=== PATIENT | male | born 1955 | race Caucasian/White ===

== ENCOUNTER 2016-09-19 22:22 | Emergency (ER) | payer OTHER ==
[~2016-09-19 22:22] MED LIST: ATARAX HCL25 MG PO; BACLOFEN10 M1 PO; CEPHALEXIN500 M1 PO; CLINDAMYCIN; DICLOXACILLIN250 M1 PO; HYDROCHLOROTHIA25 MG PO; KLOR-CON 88 ME1 PO; LASIX20 MG PO; LEVOTHYROXINE0.1 M1 PO; LOTENSIN5 MG PO; METOPROLOL100 M1 PO; OMEPRAZOLE20 M1 PO; PRILOSEC40 MG PO; RANITIDINE75 MG PO; REGLAN5 MG PO; RIBASPHERE RIB PO; SOVALDI400 MG PO; SPIRONOLACTONE100 MG PO; ZANTAC150 MG PO; ZESTRIL10 MG PO; ZYLOPRIM100 MG PO; [UNRECOGNIZED DRUG - REMARK]
--- NOTE | 2016-09-19 22:46 | NUR ---
CALLED PT 3X, CHECK OUTSIDE. PT IS NOT AT THE WAITING AREA NOR OUTSIDE. WILL CHECK BACK AGAIN.
--- NOTE | 2016-09-19 23:30 | NUR ---
CALLED 3X AGAIN EVEN CHECK OUTSIDE AGAIN. PT NOT SEEN. PATIENT LEFT WITHOUT BEING SEEN BY DR. MENDEZ. NO FURTHER CARE PROVIDED FOR PATIENT.
== END 2016-09-19 23:30 | disposition left against medical advice (07) ==
LOC: MED 22:22
DX: R10.9 Unspecified abdominal pain (principal); Z53.21 Procedure and treatment not carried out due to patient leaving prior to being seen by health care provider

== ENCOUNTER 2016-11-26 16:03 | Inpatient (IN) | payer OTHER ==
[~2016-11-26] VITALS: Ht 180.3 cm; Wt 104.3 kg
[2016-11-26 16:07] VITALS: BP 139/88
[2016-11-26] MEDS ORDERED: LIPITOR20 MG PO (16:12)
[2016-11-26] MEDS ORDERED: RANITIDINE HCL150 M2 PO (16:12)
[2016-11-26] MEDS ORDERED: LISINOPRIL40 M1 PO (16:12)
[2016-11-26] MEDS ORDERED: NORVASC10 MG PO (16:12)
[2016-11-26] MEDS ORDERED: NAPROXEN500 M2 PO (16:12)
[2016-11-26] MEDS ORDERED: [UNRECOGNIZED DRUG - OTHER] PO (16:12)
--- NOTE | 2016-11-26 16:18 | NUR ---
Patient ambulated to bed 06.
--- NOTE | 2016-11-26 16:23 | NUR ---
Dr. Webster evaluating patient at bedside.
[2016-11-26] MEDS ORDERED: ASPIRIN 325 MG TAB PO ONE (16:25)
--- NOTE | 2016-11-26 16:25 | NUR ---
PT. PRESENTS TO ED C/O RIGHT SIDED CP X 2 DAYS, STATES NO COUGH OR COLD, NO VISIBLE SIGNS OF DISTRESS NOTED, BREATHING EVEN AND UNLABORED, AAOX4, AMBULATORY, GAIT STEADY
[2016-11-26] MEDS ORDERED: NITROGLYCERIN 0.4 MG TAB SL ONE (16:35)
--- NOTE | 2016-11-26 16:51 | NUR ---
PT. TOLERATED MEDS WITHOUT PROBLEM, RADIOLOGY AT BEDSIDE
[2016-11-26] MEDS ORDERED: HYDROcodone/APAP 5/325 MG 1 TAB TAB PO PRN (17:20)
[2016-11-26] MEDS ORDERED: MORPHINE SULFATE 2 MG/ML SYR IVP PRN (17:20)
[2016-11-26] MEDS ORDERED: LORazepam 1 MG TAB PO PRN (17:20)
[2016-11-26] MEDS ORDERED: ZOLPIDEM 5 MG TAB PO PRN (17:20)
[2016-11-26] MEDS ORDERED: ONDANSETRON 4 MG/2 ML VIAL IVP PRN (17:20)
[2016-11-26] MEDS ORDERED: ACETAMINOPHEN 325 MG TAB PO PRN (17:20)
[2016-11-26 17:30] VITALS: BP 146/89
[2016-11-26] MEDS ORDERED: METOPROLOL 25 MG TAB PO SCH ×2 (17:30→18:00)
[2016-11-26] MEDS ORDERED: NITROGLYCERIN 0.4 MG TAB SL PRN (17:30)
[2016-11-26] MEDS: NACL 0.9% 1,000 ML IV SCH (17:30)
--- NOTE | 2016-11-26 17:30 | NUR ---
PT ARRIVED FROM ER VIA GURNEY. PT IS AAOX4, ON ROOM AIR, IV TO LEFT AC PATENT AND INTACT, SKIN INTACT, DRYNESS. PT IS AMBULATORY, INITIAL ASSESSMENT COMPLETED. REVIEWED PLAN OF CARE WITH PT. PT VERBALIZED UNDERSTANDING. ORINTED PT TO ROOM AND ENVIRONMENT. ALL NEEDS MET. CALL LIGHT WITHIN REACH.
--- NOTE | 2016-11-26 17:36 | NUR ---
Patient will be admitted to care of DR. HERNANDEZ. Admited to TELEMETRY. Will go to [id number]. Belongings list completed. Report to KORI LYNCH.
[2016-11-26] MEDS ORDERED: NICOTINE TRANSD SYS 14 MG/24 HR PATCH TD SCH (18:00)
[2016-11-26] MEDS ORDERED: LISINOPRIL 5 MG TAB PO SCH (18:00)
[2016-11-26] MEDS ORDERED: ATORVASTATIN 20 MG TAB PO SCH (18:00)
--- NOTE | 2016-11-26 18:00 | NUR ---
LISINOPRIL, LIPITOR, LOPRESSOR NOT GIVEN, PT STATES HE TOOK THESE MEDICATIONS TODAY ALREADY. MD NOTIFIED.
[2016-11-26] MEDS ORDERED: PANTOPRAZOLE 40 MG INJ VIAL IVP SCH (18:45)
--- NOTE | 2016-11-26 19:15 | NUR ---
ENDORSED PLAN OF CARE TO NIGHT NURSE. PT IN STABLE CONDITION
--- NOTE | 2016-11-26 19:20 | NUR ---
RECEIVED REPORT FROM CRIS SHEIKH AT BEDSIDE. INITIAL ASSESSMENT COMPLETED. PT AAOX4. PT'S SKIN IS INTACT. PT ON LETE MONITOR. PT AMBULATES. PT HAS IV TO LEFT AC G 22; ASYMPTOMATIC, PATENT AND INTACT INFUSING FLUIDS WELL. ORIENTED PT TO ROOM AND SURROUNDINGS AND USE OF CALL LIGHT. EXPLAINED PLAN OF CARE TO PT AND HE VERBALIZES UNDERSTANDING. PT USING HIS CELL PHONE, PT DENIES ANY PAIN OR DISCOMFORT. WILL CONTINUE TO MONITOR PT. CALL LIGHT WITHIN REACH.
[2016-11-26 20:00] VITALS: BP 137/81
[2016-11-26] MEDS ORDERED: RANITIDINE HCL PO SCH (21:00)
--- NOTE | 2016-11-26 22:07 | NUR ---
PT HAS SCDS ON. PT STABLE, WILL CONTINUE TO MONITOR PT.
[2016-11-27] VITALS: BP 139/85
[2016-11-27] MEDS: NACL 0.9% 1,000 ML IV SCH ×2 (00:27→08:09)
--- NOTE | 2016-11-27 00:53 | NUR ---
PT REQUESTED A SNACK; CRACKERS AND JUICE GIVEN. WILL CONTINUE TO MONITOR PT.
--- NOTE | 2016-11-27 02:40 | NUR ---
PT REQUESTING TO HAVE SCDS REMOVED. PT STATED THAT THEY BOTHER HIM AND HE CAN NOT SLEEP. WILL CONTINUE TO MONITOR PT.
[2016-11-27 04:00] VITALS: BP 125/78
--- NOTE | 2016-11-27 04:40 | NUR ---
PT USING HIS PHONE. PT DENIES PAIN. WILL CONTINUE TO MONITOR PT.
--- NOTE | 2016-11-27 07:17 | NUR ---
ENDORSED PLAN OF CARE TO KAHLIL Jo FOR CONTINUITY OF CARE. PT IN STABLE CONDITION.
--- NOTE | 2016-11-27 07:22 | NUR ---
PATIENT HAS BEEN SCREENED AND CATEGORIZED MODERATE NUTRITION RISK. PATIENT WILL BE SEEN WITHIN 3-5 DAYS OF ADMISSION. 11/29/16-12/01/16 MEGAN BERNAL MS, RDN
--- NOTE | 2016-11-27 07:25 | NUR ---
RECEIVED REPORT FROM CRIS MAGALLON. PT IS AAOX4. PT IS ON ROOM AIR, DENIES PAIN AT THIS TIME. IV TO LEFT AC #22 PATENT AND INTACT. SKIN IS INTACT. SAFETY PRECAUTIONS IN PLACE WITH BED IN LOW POSITION AND SIDE RAILS UP X2. CALL LIGHT WITHIN REACH. WILL CONTINUE TO MONITOR.
[2016-11-27 08:00] VITALS: BP 150/101
--- NOTE | 2016-11-27 08:18 | NUR ---
CHECKED BP: 150/101, HR: 66. ADMINISTERED MEDICATION ORDERED. PT TOLERATED WELL. COLLECTED URINE SPECIMEN AND SENT TO LAB.
[2016-11-27] MEDS ORDERED: PANTOPRAZOLE 40 MG INJ VIAL IVP SCH (09:00)
[2016-11-27] MEDS ORDERED: ATORVASTATIN 20 MG TAB PO SCH (09:00)
[2016-11-27] MEDS ORDERED: METOPROLOL 25 MG TAB PO SCH (09:00)
[2016-11-27] MEDS ORDERED: amLODIPine 5 MG TAB PO SCH (09:00)
[2016-11-27] MEDS ORDERED: DOCUSATE SODIUM 100 MG GELCAP PO SCH (09:00)
[2016-11-27] MEDS ORDERED: ASPIRIN 81 MG TAB.CHEW PO SCH ×2 (09:00)
[2016-11-27] MEDS ORDERED: LISINOPRIL 10 MG TAB PO SCH (09:00)
--- NOTE | 2016-11-27 11:09 | NUR ---
IV NO LONGER PATENT, DC'ED WITH CANNULA INTACT. WILL ATTEMPT NEW IV INSERTION.
[2016-11-27 12:00] VITALS: BP 150/93
--- NOTE | 2016-11-27 12:10 | NUR ---
NEW IV INSERTED TO RIGHT FOREARM #22, PATENT AND INTACT.
--- NOTE | 2016-11-27 12:31 | NUR ---
DR. KULKARNI IN TO SEE PT. WILL FOLLOW UP ON ORDERS.
--- NOTE | 2016-11-27 13:26 | NUR ---
PT HAS DECIDED TO LEAVE AMA STATING, "MY DAUGHTER IS HAVING ISSUES IN [place]." OFFERED PT ANY SERVICES THAT WE WOULD OFFER OR IF ANYONE ELSE WAS AVAILABLE AND HE STATED, "I'M THE ONLY ONE WHO CAN TAKE CARE OF IT." NOTIFIED DR. THURSTON. RISKS EXPLAINED TO THE PT FOR LEAVING AMA, PT STILL DECIDES TO LEAVE AMA. PT SIGNED AMA FORM, PLACED IN PT'S CHART.
--- NOTE | 2016-11-27 13:41 | NUR ---
PT LEFT UNIT AMA. WRIST BANDS AND TELE MONITOR REMOVED. CHARGE NURSE, RAJIV TALAMANTES. PT AMBULATED OUT OF UNIT IN STABLE CONDITION WITH ALL BELONGINGS.
[2016-11-27] MEDS ORDERED: NICOTINE TRANSD SYS 21 MG/24 HR PATCH TD SCH (13:50)
[2016-11-27] MEDS ORDERED: NICOTINE TRANSD SYS 14 MG/24 HR PATCH TD PRN (18:00)
--- NOTE | 2016-11-29 14:46 | NUR ---
CM NOTE RETRO REVIEW FAXED TO [facility] / FAX# [phone], C: [phone]
== END 2016-11-27 13:48 | disposition left against medical advice (07) | DRG 243 ==
LOC: MED 16:03 → MTU 17:03
PROVIDERS: ADMIT Family Medicine; ATTEND Family Medicine
DX: K21.9 Gastro-esophageal reflux disease without esophagitis (principal); I24.9 Acute ischemic heart disease, unspecified; I10 Essential (primary) hypertension; F17.210 Nicotine dependence, cigarettes, uncomplicated; E78.5 Hyperlipidemia, unspecified; Z53.21 Procedure and treatment not carried out due to patient leaving prior to being seen by health care provider; F15.10 Other stimulant abuse, uncomplicated; E02 Subclinical iodine-deficiency hypothyroidism; Z53.29 Procedure and treatment not carried out because of patient's decision for other reasons; Z82.49 Family history of ischemic heart disease and other diseases of the circulatory system; Z88.1 Allergy status to other antibiotic agents; Z79.899 Other long term (current) drug therapy; Z56.0 Unemployment, unspecified; Z91.14 Patient's other noncompliance with medication regimen

== ENCOUNTER 2016-12-06 23:44 | Emergency (ER) | payer OTHER ==
[~2016-12-06] VITALS: Ht 180.3 cm; Wt 107.0 kg
[~2016-12-06 23:44] MED LIST changes: +AMLO10TA PO; -ATARAX HCL25 MG PO; +ATOR20TA PO; -BACLOFEN10 M1 PO; -CEPHALEXIN500 M1 PO; +CIME200T90 PO; -CLINDAMYCIN; -DICLOXACILLIN250 M1 PO; -HYDROCHLOROTHIA25 MG PO; -KLOR-CON 88 ME1 PO; -LASIX20 MG PO; -LEVOTHYROXINE0.1 M1 PO; +LISI40TA4 PO; -LOTENSIN5 MG PO; -METOPROLOL100 M1 PO; +NAPR500T8 PO; -OMEPRAZOLE20 M1 PO; -PRILOSEC40 MG PO; +RANI150C PO; -RANITIDINE75 MG PO; -REGLAN5 MG PO; -RIBASPHERE RIB PO; -SOVALDI400 MG PO; -SPIRONOLACTONE100 MG PO; -ZANTAC150 MG PO; -ZESTRIL10 MG PO; -ZYLOPRIM100 MG PO; -[UNRECOGNIZED DRUG - REMARK]
[2016-12-06 23:50] VITALS: BP 149/90
--- NOTE | 2016-12-06 23:50 | NUR ---
PT TAKEN TO BED 6. DR. SALINAS AT BEDSIDE.
[2016-12-07] MEDS ORDERED: ASPIRIN 81 MG TAB.CHEW PO ONE
[2016-12-07] MEDS ORDERED: ASPIRIN 81 MG TAB.CHEW ONE (00:01)
[2016-12-07] MEDS ORDERED: NITROGLYCERIN 0.4 MG TAB SL ONE ×2 (00:02)
--- NOTE | 2016-12-07 00:09 | NUR ---
X-Ray at bedside.
[2016-12-07 00:10] LABS: BASOPHILS # (AUTO) 0.1 K/uL (0.00-0.22); BASOPHILS % (AUTO) 0.7 % (0.0-2.0); EOSINOPHILS # (AUTO) 0.2 K/uL (0-0.4); EOSINOPHILS % (AUTO) 2.5 % (0.0-4.0); HEMATOCRIT 44.3 % (36-52); HEMOGLOBIN 14.7 g/dL (12.0-18.0); LYMPHOCYTES # (AUTO) 2.5 K/uL (2.0-11.5); MEAN CORPUSCULAR HEMOGLOBIN 31 pg (27-31); MEAN CORPUSCULAR HGB CONC 33 g/dL (33-37); MEAN CORPUSCULAR VOLUME 94 fL (80-94); MONOCYTES # (AUTO) 0.5 K/uL (0.8-1.0); MONOCYTES % (AUTO) 5.9 % (1.7-9.3); NEUTROPHILS # (AUTO) 5.6 K/uL (1.8-7.7); NEUTROPHILS % (AUTO) 62.9 % (42.2-75.2); PLATELET COUNT (AUTO) 106 K/uL (140-450); RED BLOOD CELL COUNT(AUTO) 4.69 MIL/uL (4.20-6.10); RED CELL DISTRIBUTION WIDTH 13.1 % (11.6-13.7); WHITE BLOOD COUNT (AUTO) 8.9 K/uL (4.8-10.8)
[2016-12-07] MEDS ORDERED: NACL 0.9% 250 ML IV ONE (00:10)
--- NOTE | 2016-12-07 00:10 | NUR ---
CALLED [facility] TO GIVE REPORT. REPORT GIVEN TO CRIS BAEZ. Addendum: 12/07/16 at 0443 by BAILEE CALLED [facility]
--- NOTE | 2016-12-07 00:18 | NUR ---
DOCTOR, RT, AND DISPATCH LEAD AT BEDSIDE
--- NOTE | 2016-12-07 00:20 | NUR ---
EKG TURN VENTRICULAR FIBRILATION, PT. LOC, DR. SALINAS AT BEDSIDE, SHOCK 150 J, EKG BACK TO SR, 65BPM. PT. ALERT AND ORIENTED X4. BP 130/70, O2 SAT 98%, RR18.
[2016-12-07 00:23] VITALS: BP 134/94
--- NOTE | 2016-12-07 00:23 | NUR ---
PT TAKEN BY EMS TO [facility] ER
[2016-12-07 00:27] LABS: ANION GAP 14.1 (8-16); CALCIUM 8.4 mg/dL (8.5-10.1); CARBON DIOXIDE 26.7 mmol/L (21-32); CREATININE 1.5 mg/dL (0.6-1.3); POTASSIUM 3.8 mmol/L (3.5-5.1); TOTAL BILIRUBIN 0.3 mg/dL (0.0-1.0); TOTAL PROTEIN, SERUM 7.1 g/dL (6.4-8.2)
[2016-12-07] MEDS ORDERED: AMIODARONE 150 MG in DEXTROSE 5% 100 ML IV ONE (00:45)
== END 2016-12-07 00:23 | disposition short-term general hospital (02) ==
LOC: MED 23:44
DX: I46.9 Cardiac arrest, cause unspecified (principal); I21.09 ST elevation (STEMI) myocardial infarction involving other coronary artery of anterior wall; I10 Essential (primary) hypertension; F17.210 Nicotine dependence, cigarettes, uncomplicated; K21.9 Gastro-esophageal reflux disease without esophagitis; Z88.1 Allergy status to other antibiotic agents
CPT/HCPCS: 36415; 71010; 80053; 84484; 85025; 93005; 99291; J0282; J7060

== ENCOUNTER 2018-03-07 09:06 | Inpatient (IN) | payer OTHER ==
[~2018-03-07] VITALS: Ht 180.3 cm; Wt 106.1 kg
[~2018-03-07 09:06] MED LIST changes: +NAPR-1560 PO; -NAPR500T8 PO
[2018-03-07 09:10] VITALS: BP 176/112
--- NOTE | 2018-03-07 09:19 | NUR ---
PT AMBULATED TO ER BED 04
--- NOTE | 2018-03-07 09:27 | NUR ---
62 YO M BIB SELF W/ C/O SHARP ABD PAIN 7/10 SINCE LAST NIGHT WITH NAUSEA. DENIES VOMITING/DIARRHEA/FEVER/CHILLS OR SOB. PT ADMITS TO SMOKING "SOME SHIT THIS MORNING." PT AAOX4. GCS 15. CMS INTACT. RR EVEN AND UNLABORED. LUNGS BILATERALLY CLEAR. ABD SOFT, NON-TENDER. ER MD NOTIFIED. PT NEEDS MET. SAFETY PRECAUTIONS IN PLACE, WILL CONTINUE TO MONITOR.
[2018-03-07] MEDS ORDERED: NACL 0.9% 1,000 ML IV ONE (09:33)
[2018-03-07] MEDS ORDERED: ALUMINUM HYD/MAG/SIMETHICONE 30 ML, DICYCLOMINE HCL LIQUID 20 MG, LIDOCAINE VISCOUS 2% ... PO ONE ×3 (09:35)
[2018-03-07] MEDS ORDERED: FAMOTIDINE 20 MG/2 ML VIAL IVP ONE (09:35)
[2018-03-07] MEDS ORDERED: diphenhydrAMINE 50 MG/ML VIAL IVP ONE (09:40)
[2018-03-07] MEDS ORDERED: METOCLOPRAMIDE 10 MG/2 ML INJ VIAL IVP ONE (09:40)
[2018-03-07 10:11] LABS: BASOPHILS % (AUTO) 0.3 % (0.0-2.0); EOSINOPHILS # (AUTO) 0.2 K/uL (0-0.4); EOSINOPHILS % (AUTO) 3.9 % (0.0-4.0); HEMATOCRIT 40.1 % (36-52); HEMOGLOBIN 13.2 g/dL (12.0-18.0); LYMPHOCYTES # (AUTO) 1.6 K/uL (2.0-11.5); LYMPHOCYTES % (AUTO) 28.4 % (20.5-51.1); MEAN CORPUSCULAR HEMOGLOBIN 30 pg (27-31); MEAN CORPUSCULAR HGB CONC 33 g/dL (33-37); MEAN CORPUSCULAR VOLUME 91.5 fL (80-94); MONOCYTES # (AUTO) 0.5 K/uL (0.8-1.0); MONOCYTES % (AUTO) 8.2 % (1.7-9.3); NEUTROPHILS # (AUTO) 3.3 K/uL (1.8-7.7); NEUTROPHILS % (AUTO) 59.2 % (42.2-75.2); PLATELET COUNT (AUTO) 102 K/uL (140-450); RED BLOOD CELL COUNT(AUTO) 4.39 MIL/uL (4.20-6.10); RED CELL DISTRIBUTION WIDTH 14.7 % (11.6-13.7); WHITE BLOOD COUNT (AUTO) 5.6 K/uL (4.8-10.8)
--- NOTE | 2018-03-07 10:25 | NUR ---
PT TAKEN TO XRAY AT THIS TIME VIA W/C
[2018-03-07 10:28] LABS: CARBON DIOXIDE 29.1 mmol/L (21-32); CREATININE 1.7 mg/dL (0.7-1.3); PROTHROMBIN TIME 11.6 secs (10.8-13.4); TOTAL BILIRUBIN 0.4 mg/dL (0.0-1.0)
--- NOTE | 2018-03-07 10:33 | NUR ---
PT BACK FROM XRAY AT THIS TIME VIA W/C W/O INCIDENT
[2018-03-07 10:53] LABS: ANION GAP 12.3 (8-16); POTASSIUM 3.4 mmol/L (3.5-5.1)
--- NOTE | 2018-03-07 11:33 | NUR ---
U/S AT BEDSIDE AT THIS TIME.
[2018-03-07 12:16] LABS: AMYLASE 55 U/L (25-115); LIPASE 325 U/L (73-393); MAGNESIUM 1.6 mg/dL (1.8-2.4)
[2018-03-07 12:20] LABS: BILIRUBIN,URINE NEGATIVE (NEGATIVE); BLOOD, URINE NEGATIVE (NEGATIVE); COLOR,URINE YELLOW (YELLOW); LEUKOCYTE ESTERASE ,URINE NEGATIVE (NEGATIVE); NITRITE, URINE NEGATIVE (NEGATIVE); UGLUCOSE NEGATIVE (NEGATIVE)
[2018-03-07 12:29] LABS: BARBITURATE, URINE NEG. ng/ml (NEG <=200); BENZODIAZEPINE, URINE NEG. ng/mL (NEG <=200); CANNABINOID, URINE NEG. ng/mL (NEG <=50); COCAINE, URINE NEG. ng/mL (NEG <=300); OPIATE, URINE NEG. ng/mL (NEG <=2000); PHENCYCLIDINE SCREEN,URINE NEG. ng/mL (NEG <=25)
--- NOTE | 2018-03-07 12:35 | NUR ---
pt ambulates w/ steady gait to the restroom at this time w/ vss. will continue to monitor.
[2018-03-07] MEDS ORDERED: DOCUSATE SODIUM 100 MG GELCAP PO PRN (12:40)
[2018-03-07] MEDS ORDERED: MORPHINE SULFATE 2 MG/ML SYR IVP PRN (12:40)
[2018-03-07] MEDS ORDERED: ACETAMINOPHEN 325 MG TAB PO PRN (12:40)
[2018-03-07] MEDS ORDERED: HYDROcodone/APAP 7.5/325 MG 1 TAB PO PRN (12:40)
[2018-03-07] MEDS ORDERED: ONDANSETRON 4 MG/2 ML VIAL IM/IVP PRN (12:40)
[2018-03-07 13:10] LABS: APPEARANCE,URINE CLOUDY (CLEAR)
[2018-03-07 13:11] LABS: RBC,URINE 0-5 (RARE) /HPF (0-5); WBC,URINE 0-5 (RARE) /HPF (0-5)
[2018-03-07 13:23] LABS: BARBITURATE, URINE NEG. ng/ml (NEG <=200); BENZODIAZEPINE, URINE NEG. ng/mL (NEG <=200); CANNABINOID, URINE NEG. ng/mL (NEG <=50); COCAINE, URINE NEG. ng/mL (NEG <=300); OPIATE, URINE NEG. ng/mL (NEG <=2000); PHENCYCLIDINE SCREEN,URINE NEG. ng/mL (NEG <=25)
--- NOTE | 2018-03-07 13:37 | NUR ---
Patient will be admitted to care of [facility]. Admited to Tele. Will go to room 120B. Belongings list completed. Report to CRIS Lantigua.
--- NOTE | 2018-03-07 13:45 | NUR ---
PATIENT ARRIVED ON FLOOR VIA WHEELCHAIR, PATIENT AMBULATED TO BED ON STEADY GAIT. REPORT RECEIVED FROM BRASSIERE CUP MOLD CUTTER AT BEDSIDE FOR CONTINUITY OF CARE. RESPIRATIONS EVEN AND UNLABORED, PATIENT DENIES PAIN AT THE MOMENT. LUNG SOUNDS CLEAR, ACTIVE BOWEL SOUNDS PRESENT, MRSA SCREENING DONE. R HAND IV SITE PATENT, LEFT HAND IV SITE MISSING, NEW IV INSERTED ON RIGHT FOREARM 22 G, INTACT, PATENT AND ASYMPTOMATIC. PATIENT TOLERATED IT WELL. ORIENTED PATIENT TO FLOOR, CALL LIGHT, BATHROOM, AND TV. PATIENT VERBALIZED UNDERSTANDING. INITIAL ASSESSMENT DONE. UPDATED BOARD. SAFETY PRECAUTION IN PLACE, CALL LIGHT WITHIN REACH, WILL CONTINUE TO MONITOR PATIENT.
[2018-03-07 13:49] LABS: CHOL/HDL RATIO 3.3 (1-4.5); MAGNESIUM 1.5 mg/dL (1.8-2.4); PHOSPHORUS 3.6 mg/dL (2.5-4.9); THYROID STIMULATING HORMONE 5.84 uIU/mL (0.34-3.74)
[2018-03-07] MEDS ORDERED: LISINOPRIL 20 MG TAB PO SCH (14:00)
[2018-03-07] MEDS ORDERED: METOPROLOL SUCCINATE 50 MG TABER PO SCH (14:00)
[2018-03-07] MEDS ORDERED: amLODIPine 5 MG TAB PO SCH (14:00)
[2018-03-07] MEDS ORDERED: FAMOTIDINE 20 MG TAB PO SCH (14:00)
[2018-03-07] MEDS: NACL 0.9% 1,000 ML IV SCH ×2 (14:12→22:37)
--- NOTE | 2018-03-07 14:20 | NUR ---
ORDERED MEDICATIONS ADMINISTERED. PATIENT TOLERATING THEM WELL. DR. MATOS IN TO SPEAK TO THE PATIENT. WILL WAIT FOR HIS ASSESSMENT. RESPIRATIONS EVEN AND UNLABORED. PATIENT DENIES PAIN AT THE MOMENT. NO COMPLAINTS OF NAUSEA AT THIS TIME. SAFETY PRECAUTION IN PLACE, CALL LIGHT WITHIN REACH, WILL CONTINUE TO MONITOR PATIENT.
[2018-03-07] MEDS ORDERED: MAG SULF 2000 MG/WATER PREMIX 50 ML IV ONE (15:05)
--- NOTE | 2018-03-07 15:30 | NUR ---
CALLED DIETARY FOR LATE LUNCH FOR PATIENT. TUNA SANDWICH, JUICE, AND WATER PROVIDED FOR PATIENT. PATIENT TOLERATING IT WELL. WILL CONTINUE TO MONITOR PATIENT.
--- NOTE | 2018-03-07 15:51 | NUR ---
ORDERED MEDICATIONS ADMINISTERED. PATIENT TOLERATING THEM WELL. RESPIRATIONS EVEN AND UNLABORED. PATIENT DENIES PAIN AT THE MOMENT. NO COMPLAINTS OF NAUSEA AT THIS TIME. SAFETY PRECAUTION IN PLACE, CALL LIGHT WITHIN REACH, WILL CONTINUE TO MONITOR PATIENT.
[2018-03-07] MEDS: MAGNESIUM SULFATE 1GM in DEXTROSE 5% 100 ML PREMIX IV SCH ×2 (15:55→17:06)
[2018-03-07 16:00] VITALS: BP 154/96
[2018-03-07] MEDS ORDERED: CLOPIDOGREL 75 MG TAB PO SCH (16:00)
[2018-03-07] MEDS ORDERED: ATORVASTATIN 80 MG TAB PO SCH (16:00)
--- NOTE | 2018-03-07 19:15 | NUR ---
REPORT GIVEN TO CREATIVE SPECIALIST NURSE AT BEDSIDE FOR CONTINUITY OF CARE. PATIENT IN STABLE CONDITION.
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
[2018-03-07 20:00] VITALS: BP 148/85
--- NOTE | 2018-03-07 20:30 | NUR ---
K DUR GIVEN. PT TOLERATED WELL. POTASSIUM AT 3.4.
[2018-03-07] MEDS ORDERED: POTASSIUM CHLORIDE 10 MEQ TABER PO SCH (21:00)
--- NOTE | 2018-03-07 21:20 | NUR ---
PT ASKED ABOUT HOW WELL HIS HEART WAS WORKING. EXPLAINED TO HIM THAT DR BARRETO IS A [employer]IX[employer] GR[employer] TEACHER AND VIEWED HIS CHART AND HAS AN ECHO PLANNED FOR HIM.
--- NOTE | 2018-03-07 23:00 | NUR ---
PT SLEEPING COMFORTABLY IN BED. NO S/S OF DISTRESS.
[2018-03-08] VITALS: BP 144/90
--- NOTE | 2018-03-08 03:30 | NUR ---
PT VS STABLE. PT AWAKENED FOR VS CHECK.
[2018-03-08 04:00] VITALS: BP 123/65
--- NOTE | 2018-03-08 05:30 | NUR ---
PT AWAKE AND ALERT WATCHING TV. ASKED FOR SNACKS.
[2018-03-08] MEDS: LEVOTHYROXINE 0.1 MG TAB PO SCH (05:36)
--- NOTE | 2018-03-08 07:05 | NUR ---
REPORT GIVEN TO AM NURSE. PT IN STABLE CONDITION.
--- NOTE | 2018-03-08 07:06 | NUR ---
RECEIVED PT FORM PM NURSE . PT LYING ON HIS BED. INTRODUCED SELF AND UPDATED BOARD. PT HAS IV ON RT FA 22G , IV ND INFUSING @60 ML/HR. NO SIGN OF DISTRESS. ASKED PT IF HE HAS PAIN. DENIES ANY PAIN. ASKING FOR BREAKFAST. INFORMED THAT BREAKFAST WILL BE HERE SHORTLY. ALL SAFETY MEASURE IN PLACE . WILL CONTINUE TO MONITOR PT.
[2018-03-08 07:17] LABS: BASOPHILS % (AUTO) 0.4 % (0.0-2.0); EOSINOPHILS # (AUTO) 0.2 K/uL (0-0.4); EOSINOPHILS % (AUTO) 3.9 % (0.0-4.0); HEMATOCRIT 40.1 % (36-52); HEMOGLOBIN 13.1 g/dL (12.0-18.0); LYMPHOCYTES # (AUTO) 1.5 K/uL (2.0-11.5); LYMPHOCYTES % (AUTO) 34.5 % (20.5-51.1); MEAN CORPUSCULAR HEMOGLOBIN 30 pg (27-31); MEAN CORPUSCULAR HGB CONC 33 g/dL (33-37); MEAN CORPUSCULAR VOLUME 92.5 fL (80-94); MONOCYTES # (AUTO) 0.4 K/uL (0.8-1.0); MONOCYTES % (AUTO) 8.7 % (1.7-9.3); NEUTROPHILS # (AUTO) 2.3 K/uL (1.8-7.7); NEUTROPHILS % (AUTO) 52.5 % (42.2-75.2); PLATELET COUNT (AUTO) 94 K/uL (140-450); RED BLOOD CELL COUNT(AUTO) 4.33 MIL/uL (4.20-6.10); RED CELL DISTRIBUTION WIDTH 14.9 % (11.6-13.7); WHITE BLOOD COUNT (AUTO) 4.3 K/uL (4.8-10.8)
[2018-03-08 07:33] LABS: ANION GAP 11.7 (8-16); CARBON DIOXIDE 27.4 mmol/L (21-32); CREATININE 1.4 mg/dL (0.7-1.3); POTASSIUM 4.1 mmol/L (3.5-5.1)
[2018-03-08 08:01] VITALS: BP 116/57
--- NOTE | 2018-03-08 08:09 | NUR ---
RECEIVED CRITICAL LAB VALUE FROM LAB . TROPONIN LEVEL 0.074. DR MATOS NOTIFIED. WILL CONTINUE TO MONITOR PT.
[2018-03-08 08:36] LABS: T4 (THYROXINE) 7.1 ug/dL (4.5-12.0)
--- NOTE | 2018-03-08 08:44 | NUR ---
PATIENT HAS BEEN SCREENED AND CATEGORIZED MODERATE NUTRITION RISK. PATIENT WILL BE SEEN WITHIN 3-5 DAYS OF ADMISSION. 03/10/18 03/12/[address]
[2018-03-08] MEDS: NACL 0.9% 1,000 ML IV SCH ×2 (08:55→21:06)
[2018-03-08] MEDS ORDERED: amLODIPine 5 MG TAB PO SCH (09:00)
[2018-03-08] MEDS ORDERED: ATORVASTATIN 20 MG TAB PO SCH (09:00)
[2018-03-08] MEDS ORDERED: METOPROLOL SUCCINATE 50 MG TABER PO SCH (09:00)
[2018-03-08] MEDS ORDERED: LISINOPRIL 20 MG TAB PO SCH ×2 (09:00)
[2018-03-08] MEDS: CLOPIDOGREL 75 MG TAB PO SCH (09:10)
[2018-03-08] MEDS: ATORVASTATIN 80 MG TAB PO SCH (09:10)
--- NOTE | 2018-03-08 09:10 | NUR ---
ADMINISTERED MEDS TO PT . TOLERATED WELL. STATES THAT HE IS NOT GOING TO BE ALL DAY LONG SAID BY DOC. INFORMED THAT WILL CHECK FOR WHAT PROCEDURE HE MIGHT HAVE TO STAY ONE DAY MORE AND WILL INFORM HIM. VERBALISED UNDERSTANDING. WILL CONTINUE TO MONITOR PT.
[2018-03-08] MEDS: FAMOTIDINE 20 MG TAB PO SCH (09:11)
[2018-03-08] MEDS: CARVEDILOL 6.25 MG TAB PO SCH ×2 (09:11→21:00)
--- NOTE | 2018-03-08 09:59 | NUR ---
CM NOTE INITIAL REVIEW FAXED TO [facility]W [phone] # [phone] KATHYA EXT [id number]
[2018-03-08 12:00] VITALS: BP 134/80
--- NOTE | 2018-03-08 13:55 | NUR ---
CHECKED ON PT. PT LYING COMFORTABLY IN HIS BED. PT ASKING IF HE CAN BE DC TODAY. INFORMED THAT THERE IS NO DC ORDER YET. WILL INFORM HIM SOON HIS DC ORDER ARE OBTAINED. PT STATES DON'T WANT TO STAY WHOLE DAY. WANTS TO TALK TO DOCTOR. RESIDENT NOTIFIED. WILL CONTINUE TO MONITOR PT.
[2018-03-08 16:00] VITALS: BP 155/98
[2018-03-08] MEDS ORDERED: RIVAROXABAN 15 MG TAB PO SCH (17:00)
--- NOTE | 2018-03-08 17:06 | NUR ---
PT JUST WALKED ALONG THE HALLWAY. PT FRIENDS WITH THE PT. PT ST STABLE CONDITION. NO SIGN OF DISTRESS NOTED. WILL CONTINUE TO MONITOR PT.
[2018-03-08] MEDS ORDERED: PRED5SUS44 OP (17:53)
[2018-03-08] MEDS ORDERED: KETO5SOL OP (17:53)
[2018-03-08] MEDS ORDERED: OFLO5SOL2 OP (17:53)
--- NOTE | 2018-03-08 19:20 | NUR ---
ENDORSED PT TO PM NURSE AT BEDSIDE. PT SLEEPING ON HIS BED. PT STABLE AT THIS TIME.
--- NOTE | 2018-03-08 19:30 | NUR ---
RECEIVED NV FROM MERCEDES RN PT AAOX4 AMBULATOY ON TELEMETRY SB NOT DISTRESS NOTED AT THIS TIME DENIES ANY PAIN INITIAL ASSESSMENT DONE
[2018-03-08 20:00] VITALS: BP 145/88
--- NOTE | 2018-03-08 22:00 | NUR ---
PT REMAIN STABLE NOT DISTRESS NOTED GETTING SLEEP IV ON RT FA INFUSING WELL
[2018-03-09] VITALS: BP 121/62
--- NOTE | 2018-03-09 02:05 | NUR ---
PT SLEEPING WELL ON TELMETRY SR NOT DISTRESS NOTED
[2018-03-09 04:00] VITALS: BP 119/69
--- NOTE | 2018-03-09 05:42 | NUR ---
SPONGE BATH GIVEN LINEN CHANGED IV ON RT ARM INFUSING WELL ON TELMETR S/ OCCACIONAL ATRIAL FLUTTER
[2018-03-09] MEDS: LEVOTHYROXINE 0.1 MG TAB PO SCH (06:49)
--- NOTE | 2018-03-09 07:00 | NUR ---
PT IS ENDORSED TO ASCENCION RN FOR CONTINUITY OF CARE ON STABLE CONDITION
--- NOTE | 2018-03-09 07:05 | NUR ---
RECEIVED REPORT FROM GEAR CUTTING MACHINE OPERATOR RN. PATIENT IN STABLE CONDITION. NO COMPLAINTS OF PAIN OR DISCOMFORT. PT AWAITING FOR CARDIOLOGY CONSULT. SKIN IS INTACT. HEART RATE IS BRYAN, WHICH IS NORMAL FOR PATIENT. LUNG SOUNDS CLEAR/DIMINISHED IN ALL QUADRANTS. ABDOMEN SOFT AND ROUND. IV SITE PATENT AND INFUSING IVF PER MD ORDERS. ALL SAFETY MEASURES IN PLACE, WILL CONTINUE TO MONITOR.
[2018-03-09 08:00] VITALS: BP 139/97
--- NOTE | 2018-03-09 08:23 | NUR ---
CM NOTE CONCURRENT REVIEW FAXED TO [facility]REW [phone] # [phone] KATHYA EXT [id number]
[2018-03-09] MEDS ORDERED: CLOP75TA26 PO (08:44)
[2018-03-09] MEDS ORDERED: RIVA15TA1 PO (08:44)
[2018-03-09] MEDS ORDERED: LISI-420 PO (08:44)
[2018-03-09] MEDS ORDERED: SYN.1 PO (08:44)
[2018-03-09] MEDS ORDERED: CARV6.252 PO (08:44)
[2018-03-09] MEDS ORDERED: FAMO20TA13 PO (08:44)
[2018-03-09] MEDS ORDERED: KETOROLAC 0.5% OP 3 ML BTL OP SCH (09:00)
[2018-03-09] MEDS ORDERED: LISINOPRIL 20 MG TAB PO SCH (09:00)
[2018-03-09] MEDS: CARVEDILOL 6.25 MG TAB PO SCH (09:00)
[2018-03-09] MEDS: FAMOTIDINE 20 MG TAB PO SCH (09:00)
[2018-03-09] MEDS: ATORVASTATIN 80 MG TAB PO SCH (09:00)
[2018-03-09] MEDS ORDERED: prednisoLONE 1% OP 5 ML BTL OP SCH (09:00)
[2018-03-09] MEDS: CLOPIDOGREL 75 MG TAB PO SCH (09:00)
[2018-03-09] MEDS ORDERED: OFLOXACIN 0.3% OP 5 ML BTL OP SCH (09:00)
--- NOTE | 2018-03-09 09:15 | NUR ---
PT VOICING DESIRE TO LEAVE AMA AT THIS MOMENT. MD NOTIFIED AND WILL SPEAK WITH PATIENT. PT REFUSING ALL MORNING MEDS AND BEING UNCOOPERATIVE AT THIS TIME.
--- NOTE | 2018-03-09 10:20 | NUR ---
DR. MATOS AT BEDSIDE TO SPEAK WITH PATIENT REGARDING PLAN OF CARE. DISCUSSED MEDICATIONS AND GAVE MEDICATION AND MED RECONCILIATION TEACHING. PT WILL BE DISCHARGED TODAY.
--- NOTE | 2018-03-09 10:30 | NUR ---
DISCHARGE PAPERWORK, INCLUDING INSTRUCTIONS TO FOLLOW UP WITH PCP AND NEW PRESCRIPTIONS, GIVEN TO PATIENT. PATIENT VERBALIZED COMPLETE UNDERSTANDING OF ALL DISCHARGE TEACHING. IV SITES REMOVED WITH MINIMAL BLOOD LOSS AND IV LUMENS COMPLETELY INTACT. ALL PERSONAL BELONGINGS ARE WITH PATIENT. PT IN STABLE CONDITION FOR DISCHARGE TO HOME.
--- NOTE | 2018-03-09 10:40 | NUR ---
WALKED PATIENT TO MAIN LOBBY FOR DISCHARGE. PT IN STABLE CONDITION WITH STEADY GAIT. ALL PERSONAL BELONGINGS ARE WITH PATIENT.
--- NOTE | 2018-03-10 08:00 | NUR ---
FAXED DISCHARGE [facility];RY TO [facility] [phone]
== END 2018-03-09 10:40 | disposition home or self-care (01) ==
LOC: MED 09:06 → MTU 13:11
PROVIDERS: ADMIT General Practice; ATTEND General Practice
DX: K80.20 Calculus of gallbladder without cholecystitis without obstruction (principal); N17.0 Acute kidney failure with tubular necrosis; E83.42 Hypomagnesemia; D69.6 Thrombocytopenia, unspecified; I48.0 Paroxysmal atrial fibrillation; I42.9 Cardiomyopathy, unspecified; I48.2 Chronic atrial fibrillation; E87.6 Hypokalemia; F15.90 Other stimulant use, unspecified, uncomplicated; K21.9 Gastro-esophageal reflux disease without esophagitis; F17.210 Nicotine dependence, cigarettes, uncomplicated; R91.1 Solitary pulmonary nodule; I12.9 Hypertensive chronic kidney disease with stage 1 through stage 4 chronic kidney disease, or unspecified chronic kidney disease; N18.9 Chronic kidney disease, unspecified; E03.9 Hypothyroidism, unspecified; E78.5 Hyperlipidemia, unspecified; E78.00 Pure hypercholesterolemia, unspecified; I25.2 Old myocardial infarction; Z91.19 Patient's noncompliance with other medical treatment and regimen; Z88.1 Allergy status to other antibiotic agents; Z79.899 Other long term (current) drug therapy; Z82.49 Family history of ischemic heart disease and other diseases of the circulatory system; Z95.5 Presence of coronary angioplasty implant and graft; Z71.6 Tobacco abuse counseling
CPT/HCPCS: 36415; 71045; 76705; 80048; 80053; 80305; 81001; 82150; 83036; 83690; 83735; 83880; 84100; 84436; 84443; 84479; 84484; 85025; 85610; 85730; 87081; 87086; 93005; 96361; 96374; 96375; 99285; G0482; J1200; J2765; J3490; J7030; Q0092

== ENCOUNTER 2019-11-19 08:55 | Emergency (ER) | payer OTHER ==
[~2019-11-19] VITALS: Ht 180.3 cm; Wt 102.1 kg
[~2019-11-19 08:55] MED LIST changes: -AMLO10TA PO; +CARV6.252 PO; -CIME200T90 PO; +CLOP75TA26 PO; +FAMO20TA13 PO; +KETO5SOL OP; +LISI-420 PO; -LISI40TA4 PO; -NAPR-1560 PO; +OFLO5SOL2 OP; +PRED5SUS44 OP; -RANI150C PO; +RIVA15TA1 PO; +SYN.1 PO
[2019-11-19 08:58] VITALS: BP 165/102
--- NOTE | 2019-11-19 09:07 | NUR ---
Patient ambulated to bed 7. RN evaluating patient at bedside.
--- NOTE | 2019-11-19 09:12 | NUR ---
Dr. Campos is evaluating the patient at bedside.
--- NOTE | 2019-11-19 09:17 | NUR ---
c/o upper abd pain wore uppong light exetion---describes as consricting---denies n/v denies injury
[2019-11-19] MEDS ORDERED: ONDANSETRON 4 MG ODT PO ONE (09:20)
[2019-11-19] MEDS ORDERED: KETOROLAC 60 MG/2 ML VIAL IM ONE (09:20)
[2019-11-19 09:44] LABS: BASOPHILS # (AUTO) 0.1 K/uL (0.00-0.22); BASOPHILS % (AUTO) 1.2 % (0.0-2.0); EOSINOPHILS # (AUTO) 0.2 K/uL (0-0.4); EOSINOPHILS % (AUTO) 2.9 % (0.0-4.0); HEMATOCRIT 43.5 % (36-52); HEMOGLOBIN 14.5 g/dL (12.0-18.0); LYMPHOCYTES # (AUTO) 1.2 K/uL (2.0-11.5); LYMPHOCYTES % (AUTO) 20.4 % (20.5-51.1); MEAN CORPUSCULAR HEMOGLOBIN 31 pg (27-31); MEAN CORPUSCULAR HGB CONC 33 g/dL (33-37); MEAN CORPUSCULAR VOLUME 91.8 fL (80-94); MONOCYTES # (AUTO) 0.3 K/uL (0.8-1.0); MONOCYTES % (AUTO) 4.9 % (1.7-9.3); NEUTROPHILS # (AUTO) 4.2 K/uL (1.8-7.7); NEUTROPHILS % (AUTO) 70.6 % (42.2-75.2); PLATELET COUNT (AUTO) 107 K/uL (140-450); RED BLOOD CELL COUNT(AUTO) 4.74 MIL/uL (4.20-6.10)
[2019-11-19 10:07] LABS: ALBUMIN 3.7 g/dL (3.4-5.0); ANION GAP 10.7 (8-16); CARBON DIOXIDE 28.9 mmol/L (21-32); CREATININE 1.4 mg/dL (0.6-1.3); POTASSIUM 4.6 mmol/L (3.5-5.1); TOTAL BILIRUBIN 0.5 mg/dL (0.0-1.0)
--- NOTE | 2019-11-19 10:36 | NUR ---
Patient discharged with v/s stable. Written and verbal after care instructions given and explained. Patient alert, oriented and verbalized understanding of instructions. Ambulatory with steady gait. All questions addressed prior to discharge. ID band removed. Patient advised to follow up with PMD. Rx of naprosyn/norco/zofran odt given. Patient educated on indication of medication including possible reaction and side effects. Opportunity to ask questions provided and answered.
[2019-11-19 10:37] VITALS: BP 145/97
== END 2019-11-19 10:36 | disposition home or self-care (01) ==
LOC: MED 08:55
DX: K80.20 Calculus of gallbladder without cholecystitis without obstruction (principal); F17.200 Nicotine dependence, unspecified, uncomplicated; I10 Essential (primary) hypertension; F15.90 Other stimulant use, unspecified, uncomplicated; K21.9 Gastro-esophageal reflux disease without esophagitis; E03.9 Hypothyroidism, unspecified; Z79.899 Other long term (current) drug therapy; Z88.1 Allergy status to other antibiotic agents
CPT/HCPCS: 36415; 80053; 81002; 83690; 84484; 85025; 93005; 96372; 99284; J1885; Q0162

== ENCOUNTER 2019-11-24 02:01 | Emergency (ER) | payer OTHER ==
[~2019-11-24] VITALS: Ht 180.3 cm; Wt 106.6 kg
[2019-11-24 02:13] VITALS: BP 171/116
[2019-11-24] MEDS ORDERED: MORPHINE SULFATE 4 MG/ML SYR IM ONE (02:35)
[2019-11-24 03:10] VITALS: BP 169/91
== END 2019-11-24 03:10 | disposition home or self-care (01) ==
LOC: MED 02:01
DX: R10.11 Right upper quadrant pain (principal); F17.200 Nicotine dependence, unspecified, uncomplicated; K21.9 Gastro-esophageal reflux disease without esophagitis; I10 Essential (primary) hypertension; E03.9 Hypothyroidism, unspecified; I25.2 Old myocardial infarction; Z79.899 Other long term (current) drug therapy; Z88.8 Allergy status to other drugs, medicaments and biological substances
CPT/HCPCS: 81002; 96372; 99283; J2270

== ENCOUNTER 2020-02-26 16:35 | Emergency (ER) | payer OTHER ==
[~2020-02-26] VITALS: Ht 180.3 cm; Wt 107.0 kg
[2020-02-26 16:53] VITALS: BP 164/85
[2020-02-26] MEDS ORDERED: KETOROLAC 30 MG/ML VIAL IM ONE (17:55)
--- NOTE | 2020-02-26 18:05 | NUR ---
64 Y/O MALE FROM HOME C/O RT ARM PAIN X 1 WK. STATES IT FEELS LIKE MUSCLE SPASM. +CMS, + PULSES. DENIES TRAUMA/INJURY. RR EVEN AND UNLABORED, SKIN WARM, DRY TO THE TOUCH. VSS
[2020-02-26 18:18] VITALS: BP 164/85
--- NOTE | 2020-02-26 18:21 | NUR ---
Patient discharged with v/s stable. Written and verbal after care instructions given and explained. Patient alert, oriented and verbalized understanding of instructions. Ambulatory with steady gait. All questions addressed prior to discharge. ID band removed. Patient advised to follow up with PMD. Rx of METHOCARBAMOL 500MG given. Patient educated on indication of medication including possible reaction and side effects. Opportunity to ask questions provided and answered.
== END 2020-02-26 18:21 | disposition home or self-care (01) ==
LOC: MED 16:35
DX: S46.811A Strain of other muscles, fascia and tendons at shoulder and upper arm level, right arm, initial encounter (principal); K21.9 Gastro-esophageal reflux disease without esophagitis; I10 Essential (primary) hypertension; E03.9 Hypothyroidism, unspecified; I25.2 Old myocardial infarction; Z88.1 Allergy status to other antibiotic agents; Z79.899 Other long term (current) drug therapy; X58.XXXA Exposure to other specified factors, initial encounter; Y93.89 Activity, other specified; Y92.89 Other specified places as the place of occurrence of the external cause; Y99.8 Other external cause status
CPT/HCPCS: 96372; 99283; J1885

== ENCOUNTER 2020-03-07 14:50 | Emergency (ER) | payer OTHER ==
[~2020-03-07] VITALS: Ht 185.4 cm; Wt 113.4 kg
--- NOTE | 2020-03-07 14:58 | NUR ---
Pt taken to bed 7. Triaged at bedside by primary RN.
[2020-03-07 15:02] VITALS: BP 182/102
[2020-03-07] MEDS ORDERED: KETOROLAC 30 MG/ML VIAL IVP ONE (15:05)
[2020-03-07 15:34] LABS: BASOPHILS % (AUTO) 0.8 % (0.0-2.0); EOSINOPHILS # (AUTO) 0.2 K/uL (0-0.4); EOSINOPHILS % (AUTO) 4.9 % (0.0-4.0); HEMATOCRIT 37.4 % (36-52); HEMOGLOBIN 12.7 g/dL (12.0-18.0); LYMPHOCYTES # (AUTO) 0.9 K/uL (2.0-11.5); LYMPHOCYTES % (AUTO) 22.2 % (20.5-51.1); MEAN CORPUSCULAR HEMOGLOBIN 32 pg (27-31); MEAN CORPUSCULAR HGB CONC 34 g/dL (33-37); MEAN CORPUSCULAR VOLUME 92.9 fL (80-94); MONOCYTES # (AUTO) 0.4 K/uL (0.8-1.0); MONOCYTES % (AUTO) 9.8 % (1.7-9.3); NEUTROPHILS # (AUTO) 2.7 K/uL (1.8-7.7); NEUTROPHILS % (AUTO) 62.3 % (42.2-75.2); PLATELET COUNT (AUTO) 111 K/uL (140-450); RED BLOOD CELL COUNT(AUTO) 4.03 MIL/uL (4.20-6.10); RED CELL DISTRIBUTION WIDTH 14.3 % (11.6-13.7); WHITE BLOOD COUNT (AUTO) 4.3 K/uL (4.8-10.8)
--- NOTE | 2020-03-07 15:37 | NUR ---
ULTRASOUND AT BEDTIME
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
[2020-03-07 16:04] LABS: ALBUMIN 3.6 g/dL (3.4-5.0); ANION GAP 15.5 (8-16); CARBON DIOXIDE 25.4 mmol/L (21-32); CREATININE 1.3 mg/dL (0.6-1.3); POTASSIUM 3.9 mmol/L (3.5-5.1); TOTAL BILIRUBIN 0.3 mg/dL (0.0-1.0)
[2020-03-07 16:23] VITALS: BP 182/102
== END 2020-03-07 16:24 | disposition home or self-care (01) ==
LOC: MED 14:50
DX: K80.20 Calculus of gallbladder without cholecystitis without obstruction (principal); I51.9 Heart disease, unspecified; K21.9 Gastro-esophageal reflux disease without esophagitis; E07.9 Disorder of thyroid, unspecified; I10 Essential (primary) hypertension; Z88.1 Allergy status to other antibiotic agents; Z79.899 Other long term (current) drug therapy
CPT/HCPCS: 36415; 76705; 80053; 83690; 85025; 96374; 99284; J1885; Q0092

== ENCOUNTER 2020-03-16 21:55 | Emergency (ER) | payer OTHER ==
[~2020-03-16] VITALS: Ht 180.3 cm; Wt 106.1 kg
[2020-03-16 22:06] VITALS: BP 199/106
[2020-03-16 22:47] LABS: BASOPHILS % (AUTO) 0.3 % (0.0-2.0); EOSINOPHILS # (AUTO) 0.2 K/uL (0-0.4); EOSINOPHILS % (AUTO) 4.2 % (0.0-4.0); HEMATOCRIT 38.6 % (36-52); HEMOGLOBIN 13.1 g/dL (12.0-18.0); LYMPHOCYTES % (AUTO) 21.4 % (20.5-51.1); MEAN CORPUSCULAR HEMOGLOBIN 31 pg (27-31); MEAN CORPUSCULAR HGB CONC 34 g/dL (33-37); MEAN CORPUSCULAR VOLUME 92.9 fL (80-94); MONOCYTES # (AUTO) 0.4 K/uL (0.8-1.0); MONOCYTES % (AUTO) 8.1 % (1.7-9.3); NEUTROPHILS # (AUTO) 3.2 K/uL (1.8-7.7); PLATELET COUNT (AUTO) 135 K/uL (140-450); RED BLOOD CELL COUNT(AUTO) 4.15 MIL/uL (4.20-6.10); RED CELL DISTRIBUTION WIDTH 14.4 % (11.6-13.7); WHITE BLOOD COUNT (AUTO) 4.9 K/uL (4.8-10.8)
[2020-03-16 23:07] LABS: ALBUMIN 3.6 g/dL (3.4-5.0); ANION GAP 13.3 (8-16); CARBON DIOXIDE 28.7 mmol/L (21-32); CREATININE 1.5 mg/dL (0.6-1.3); TOTAL BILIRUBIN 0.4 mg/dL (0.0-1.0)
[2020-03-16 23:28] LABS: APPEARANCE,URINE CLEAR (CLEAR); BILIRUBIN,URINE NEGATIVE (NEGATIVE); BLOOD, URINE NEGATIVE (NEGATIVE); COLOR,URINE YELLOW (YELLOW); LEUKOCYTE ESTERASE ,URINE NEGATIVE (NEGATIVE); NITRITE, URINE NEGATIVE (NEGATIVE); PH,URINE 6.5 (5.0-9.0); UGLUCOSE NEGATIVE (NEGATIVE)
[2020-03-17] MEDS ORDERED: HYDROcodone/APAP 5/325 MG 1 TAB TAB PO ONE
[2020-03-17] MEDS ORDERED: ONDANSETRON 4 MG ODT PO ONE
[2020-03-17] MEDS ORDERED: KETOROLAC 30 MG/ML VIAL IM ONE (01:25)
[2020-03-17 01:45] VITALS: BP 199/106
== END 2020-03-17 01:45 | disposition home or self-care (01) ==
LOC: MED 21:55
DX: K80.20 Calculus of gallbladder without cholecystitis without obstruction (principal); E03.9 Hypothyroidism, unspecified; I51.89 Other ill-defined heart diseases; I10 Essential (primary) hypertension; K21.9 Gastro-esophageal reflux disease without esophagitis; Z88.1 Allergy status to other antibiotic agents; Z88.0 Allergy status to penicillin; Z79.899 Other long term (current) drug therapy
CPT/HCPCS: 36415; 71045; 76705; 80053; 81003; 83690; 84484; 85025; 93005; 96372; 99285; J1885; Q0092; Q0162

== ENCOUNTER 2021-06-29 18:53 | Emergency (ER) | payer OTHER ==
[~2021-06-29] VITALS: Ht 180.3 cm; Wt 106.1 kg
[~2021-06-29 18:53] MED LIST changes: -LISI-420 PO; +LISI20TA29 PO
[2021-06-29 18:57] VITALS: BP 170/113
--- NOTE | 2021-06-29 19:04 | NUR ---
PATIENT W/C ASSISTED TO BED 7.
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
[2021-06-29] MEDS ORDERED: ACETAMINOPHEN EXTRA STRENGTH 500 MG TAB PO ONE (20:00)
--- NOTE | 2021-06-29 23:25 | NUR ---
Patient discharged with v/s stable. Written and verbal after care instructions given and explained. Patient verbalized understanding. Ambulatory with steady gait. All questions addressed prior to discharge. Advised to follow up with PMD.
[2021-06-29 23:26] VITALS: BP 147/127
== END 2021-06-29 23:25 | disposition home or self-care (01) ==
LOC: MED 18:53
DX: S50.11XA Contusion of right forearm, initial encounter (principal); S40.812A Abrasion of left upper arm, initial encounter; S40.811A Abrasion of right upper arm, initial encounter; S00.81XA Abrasion of other part of head, initial encounter; I25.2 Old myocardial infarction; K21.9 Gastro-esophageal reflux disease without esophagitis; I10 Essential (primary) hypertension; Z86.39 Personal history of other endocrine, nutritional and metabolic disease; Z95.5 Presence of coronary angioplasty implant and graft; Z79.01 Long term (current) use of anticoagulants; Z79.899 Other long term (current) drug therapy; Z79.2 Long term (current) use of antibiotics; Z88.1 Allergy status to other antibiotic agents; Z88.0 Allergy status to penicillin; V89.2XXA Person injured in unspecified motor-vehicle accident, traffic, initial encounter; Y93.89 Activity, other specified; Y92.410 Unspecified street and highway as the place of occurrence of the external cause; Y99.8 Other external cause status
CPT/HCPCS: 71045; 73130; 90471; 90715; 99284

== ENCOUNTER 2022-01-18 12:52 | Emergency (ER) | payer OTHER ==
[~2022-01-18] VITALS: Ht 180.3 cm; Wt 107.7 kg
[2022-01-18 13:03] VITALS: BP 178/95
--- NOTE | 2022-01-18 13:10 | NUR ---
PT AMBULATED TO BED 7
[2022-01-18] MEDS ORDERED: FLUORESCEIN OPTH STRIP 1 MG OP ONE (13:15)
[2022-01-18] MEDS ORDERED: TETRACAINE HCL/PF 0.5% OPTH 4 ML BTL OP ONE (13:15)
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
[2022-01-18] MEDS ORDERED: TOBR5SOL17 LEFT EYE (13:50)
[2022-01-18] MEDS ORDERED: NAPR-54 PO (13:50)
--- NOTE | 2022-01-18 14:21 | NUR ---
Patient discharged with v/s stable. Written and verbal after care instructions FOR CORNEAL ABRASION given and explained. Patient alert, oriented and verbalized understanding of instructions. Ambulatory with steady gait. All questions addressed prior to discharge. ID band removed. Patient advised to follow up with PMD. Rx of NAPROXEN AND TOBRAMYCIN given. Opportunity to ask questions provided and answered.
--- NOTE | 2022-01-18 14:22 | NUR ---
Chart checked and completed. The patient's care was reviewed and supervised by Karen Alvarez RN.
== END 2022-01-18 14:21 | disposition home or self-care (01) ==
LOC: MED 12:52
DX: S05.02XA Injury of conjunctiva and corneal abrasion without foreign body, left eye, initial encounter (principal); I10 Essential (primary) hypertension; I25.2 Old myocardial infarction; K21.9 Gastro-esophageal reflux disease without esophagitis; E03.9 Hypothyroidism, unspecified; Z88.0 Allergy status to penicillin; Z88.1 Allergy status to other antibiotic agents; X58.XXXA Exposure to other specified factors, initial encounter; Y93.89 Activity, other specified; Y92.89 Other specified places as the place of occurrence of the external cause; Y99.8 Other external cause status
CPT/HCPCS: 99283

== ENCOUNTER 2022-02-11 20:13 | Emergency (ER) | payer OTHER ==
[~2022-02-11] VITALS: Ht 180.3 cm; Wt 106.1 kg
[~2022-02-11 20:13] MED LIST changes: +NAPR-54 PO; +TOBR5SOL17 LEFT EYE
[2022-02-11 20:25] VITALS: BP 162/109
--- NOTE | 2022-02-11 20:25 | NUR ---
TO BED AMBULATORY
--- NOTE | 2022-02-11 20:38 | NUR ---
66 YO M BIB SELF WITH C/C OF 7/10 LEFT LEG PAIN X2DAYS. PT DENEIS INJURY. PTS LOWER PORTION OF CALF AND ANKLE ARE SWOLLEN, RED, AND HOT TO TOUCH. PT STATES WALKING INCREASES PAIN. PT REPORTS FEELING TIGHTNESS. LIMITED ROM D/T PAIN. DENIES INSECT BITES. IS UNAWARE WHY HIS LEG IS THE WAY IT IS. HX: [place] WITH STENT PLACEMENT RX:NONCOMPLIANT ALLERGY:PCN, AND CLINDAMYCIN
--- NOTE | 2022-02-11 20:45 | NUR ---
ERMD AT BEDSIDE.
--- NOTE | 2022-02-11 20:52 | NUR ---
LEONARD ON THE PHONE WITH , WHOM STATED HE WAS ON PLAVIX 75MG IN THE PAST.
--- NOTE | 2022-02-11 21:36 | NUR ---
RUTH ANN FROM LAB WAS UNABLE TO DRAW LAB. I TRIED WAS NOT ABLE TO. ANOTHER NURSE WILL ATTMEPT. IS AWARE.
--- NOTE | 2022-02-11 21:52 | NUR ---
US AT BEDSIDE
--- NOTE | 2022-02-11 22:34 | NUR ---
STATED NO LABS AT THIS TIME IS OK.
--- NOTE | 2022-02-11 22:57 | NUR ---
KEAGAN BARRETT AT BEDSIDE
[2022-02-11] MEDS ORDERED: DOXY-487 PO (22:59)
[2022-02-11 23:08] VITALS: BP 155/90
--- NOTE | 2022-02-11 23:08 | NUR ---
Patient discharged with v/s stable. Written and verbal after care instructions given CELLULITIS and explained. Patient alert, oriented and verbalized understanding of instructions. Ambulatory with steady gait. All questions addressed prior to discharge. ID band removed. Patient advised to follow up with PMD. Rx of DOXYCLYCLINE HYCLATE given. Patient educated on indication of medication including possible reaction and side effects. Opportunity to ask questions provided and answered.
== END 2022-02-11 23:08 | disposition home or self-care (01) ==
LOC: MED 20:13
DX: L03.116 Cellulitis of left lower limb (principal); R60.0 Localized edema; I10 Essential (primary) hypertension; K21.9 Gastro-esophageal reflux disease without esophagitis; I25.2 Old myocardial infarction; E03.9 Hypothyroidism, unspecified; Z98.890 Other specified postprocedural states; Z88.1 Allergy status to other antibiotic agents; Z88.0 Allergy status to penicillin; Z79.899 Other long term (current) drug therapy
CPT/HCPCS: 93971; 99284; Q0092

== ENCOUNTER 2024-04-22 02:18 | Emergency (ER) | payer MEDICAID, OTHER ==
[~2024-04-22] VITALS: Ht 180.3 cm; Wt 104.3 kg
[~2024-04-22 02:18] MED LIST changes: +CLOP-68 PO; -CLOP75TA26 PO; +DOXY-487 PO; +NAPR-337 PO; -NAPR-54 PO; +OFLO5DRO2 OP; -OFLO5SOL2 OP; -TOBR5SOL17 LEFT EYE; +TOBR5SOL38 LEFT EYE
[2024-04-22 02:32] VITALS: BP 155/95; PULSE 80; RESP 20; TEMP 98; O2SAT 98
[2024-04-22] MEDS ORDERED: SULF-58 PO (02:50)
[2024-04-22 02:56] VITALS: BP 146/87; PULSE 72; RESP 18; TEMP 98; O2SAT 97
--- NOTE | 2024-04-22 02:56 | NUR ---
Patient discharged with v/s stable. Written and verbal after care instructions given and explained. Patient alert, oriented and verbalized understanding of instructions. All questions addressed prior to discharge. ID band removed. Patient advised to follow up with PMD. Rx of given. Patient educated on indication of medication including possible reaction and side effects. Opportunity to ask questions provided and answered.
== END 2024-04-22 02:56 | disposition home or self-care (01) ==
LOC: MED 02:18
DX: F15.10 Other stimulant abuse, uncomplicated (principal); F42.4 Excoriation (skin-picking) disorder; I10 Essential (primary) hypertension; K21.9 Gastro-esophageal reflux disease without esophagitis; I25.2 Old myocardial infarction; Z79.2 Long term (current) use of antibiotics; Z79.899 Other long term (current) drug therapy; Z88.0 Allergy status to penicillin; Z88.1 Allergy status to other antibiotic agents
CPT/HCPCS: 99283